=== PATIENT | female | born 1980 | race Caucasian/White ===

== ENCOUNTER 2018-05-14 11:18 | Outpatient (REF) | payer OTHER, SELFPAY ==
--- NOTE | 2018-05-14 10:45 | PAPFT_PTH ---
PATIENT: Lena Still LOC: [facility] U#:[id number] AGE/SX: 38/F ROOM: RE05/14/[address]: Mandi Garcia NP : 1980 BED: DIS: 05/14/2018 SPEC #: [id number] RECD: 05/14/18 13:18 STATUS: SCOTT RENaun #: [id number] OBED: 05/14/18 10:[address]: Mandi Garcia NP DEPT: [facility] Cytology RECD BY: Crystal Chu ENTERED: 05/14/18 13:18 SP TYPE: PAPFT CATHY DR: Margaret Arias MD Tissues: 1 - CX/ENDOCX FOR PAP SMEARS Procedures: PAP THIN PREP/UVM Screening HPV DNA PROBE Comments: [id number]
== END 2018-05-14 11:38 ==
LOC: LBN 11:18
PROVIDERS: PCP Family Medicine; Visit Provider Nurse Practitioner Women's Health
DX: Z12.4 Encounter for screening for malignant neoplasm of cervix (principal)
CPT/HCPCS: 88142; 87624

== ENCOUNTER 2018-05-20 16:30 | Outpatient (CLI) | payer OTHER, SELFPAY ==
[2018-05-20 17:58] LABS: Cholesterol 167 mg/dL (50-200); HDL Cholesterol 60 mg/dL (40-60); LDL CHOLESTEROL 95 mg/dL (<100); Triglyceride 31 mg/dL (30-150)
== END 2018-05-20 16:50 ==
PROVIDERS: PCP Family Medicine; Visit Provider Nurse Practitioner Women's Health
DX: Z13.220 Encounter for screening for lipoid disorders (principal)
CPT/HCPCS: 80061; 83721

== ENCOUNTER 2020-07-11 02:38 | Outpatient (CLI) | payer OTHER, SELFPAY ==
[2020-07-11 12:32] LABS: Abs Immature Grans 0.01 10^3/uL (0.0-0.06); Absolute Basophil Count 0.06 10^3/uL (0.0-0.2); Absolute Eosinophil Count 0.38 10^3/uL (0.0-0.7); Absolute Lymphocyte Count 2.24 10^3/uL (1.2-3.4); Absolute Monocyte Count 0.44 10^3/uL (0.1-0.8); Absolute Neutrophil Count 2.92 10^3/uL (1.2-6.7); Eosinophils % 6.3; HCT 43.2 % (36.0-46.0); Immature Grans % 0.2; MCH 29.9 pg (27.0-33.0); MCHC 32.4 % (32.0-36.0); MCV 92.1 fL (80-95); MPV 11.6 fL (8.0-11.0); Monocytes % 7.3; Neutrophils % 48.2; Nucleated RBC 0 %; Platelet Count 240 10^3/uL (130-400); RBC 4.69 10^6/uL (3.93-5.22); RDW 13.4 % (11.7-14.6); RDW-SD 45.5 fL; WBC 6.05 10^3/uL (4.4-10.8)
[2020-07-11 13:01] LABS: ALT 26 U/L (14-59); AST 15 U/L (15-37); Albumin 3.6 g/dL (3.4-5.0); Alkaline Phosphatase 64 U/L (46-116); Anion Gap 7.2 mmol/L (3-11); BUN 15 mg/dL (7-18); Bilirubin, Total 0.5 mg/dL (0.2-1.0); CO2 27.8 mmol/L (21.0-32.0); CREATININE 0.8 mg/dL (0.55-1.02); Calcium 9.3 mg/dL (8.5-10.1); Chloride 107 mmol/L (98-107); Glucose 89 mg/dL (74-106); Sodium 142 mmol/L (136-145); Total Protein 6.8 g/dL (6.4-8.2)
[2020-07-11 16:55] LABS: ESR 5 mm/hr (<or=20)
[2020-07-12 11:20] LABS: C3 Complement 84 mg/dL (81-157); C4 Complement 21 mg/dL (13-39); IgA 370 mg/dL (85-499); IgG 1071 mg/dL (610-1,616); IgM 135 mg/dL (35-242)
[2020-07-12 14:32] LABS: ANA Interpretation Positive (Negative); ANA Titer Pattern 1:160 Homogeneous
[2020-07-13 10:28] LABS: Complement C1q, S 21 mg/dL (12 - 22)
== END 2020-07-11 02:39 | disposition home or self-care (01) ==
LOC: LOS 02:38
PROVIDERS: Allergy & Immunology; PCP Family Medicine; Visit Provider Family Medicine
DX: L50.8 Other urticaria (principal); T78.3XXA Angioneurotic edema, initial encounter
CPT/HCPCS: 36415; 80053; 82784; 85652; 86332; 85025; 86038; 86160

== ENCOUNTER 2021-06-22 16:11 | Outpatient (REF) | payer OTHER, SELFPAY ==
[2021-06-22 23:33] LABS: COVID-19 RT-PCR UVMMC Result Negative (Negative)
== END 2021-06-22 16:12 | disposition home or self-care (01) ==
LOC: LBN 16:11
PROVIDERS: PCP Family Medicine; Visit Provider Nurse Practitioner Family
DX: J02.9 Acute pharyngitis, unspecified (principal); Z20.822 Contact with and (suspected) exposure to COVID-19
CPT/HCPCS: U0003

== ENCOUNTER 2022-09-17 08:00 | Outpatient (CLI) | payer OTHER, SELFPAY ==
--- NOTE | 2022-09-17 08:00 | RT.EKG_ITS ---
APPROVED REPORT Exam: Resting ECG Reason for Exam: paroxysmal afib Patient Location: O HR:73 bpm ECG Measurements Heart Rate 73 AXIS NC 141 P 76 QRSd 92 QRS 15 QT 395 T 33 QTc 436 Conclusion Sinus rhythm...normal P axis, V-rate 50- 99 Low voltage, precordial leads...precordial leads <1.0mV Otherwise normal ECG
== END 2022-09-17 08:01 | disposition home or self-care (01) ==
LOC: DI.CARD 08:01
PROVIDERS: PCP Nurse Practitioner Family; Visit Provider Internal Medicine Cardiovascular Disease
DX: I48.0 Paroxysmal atrial fibrillation (principal)
CPT/HCPCS: 93010

== ENCOUNTER 2022-10-01 01:57 | Outpatient (CLI) | payer OTHER, SELFPAY ==
--- NOTE | 2022-10-01 12:07 | DI.MAMMO_ITS ---
Exam(s) MAMMO SCREENING EXAM: MAMMO SCREENING CLINICAL HISTORY: screening,Z12.39 TECHNIQUE: Bilateral full field digital CC and MLO mammographic images were obtained with 3D tomosyn thesis and utilizing computer aided detection (CAD). COMPARISON: This is a baseline examination. FINDINGS: Masses/Architectural Distortion: None seen. Microcalcifications: No suspicious pleomorphic-type are seen. Skin Thickening/Nipple Retraction: None. IMPRESSION: 1. No significant interval change with no specific features of malignancy noted. 2. Unless there is more urgent need, screening mammography is recommended, as per [employer] guidelines. BI-RADS Category 1 - Negative Breast Density - Category C - Heterogeneously dense Breast density category C or D implies that the patient has dense breast tissue. Dense breast tissue is very common and is not abnormal but dense breast tissue can make it harder to find cancer on a ma mmogram. Also, dense breast tissue may increase their breast cancer risk. This information about the result of the mammogram report was provided to the patient to raise their awareness. Use this report when you speak with the patient about their risks for breast cancer, which includes their family hist ory. At that time, you may recommend for more screening tests (Ultrasound or MRI) as they might be us eful based on their risk. A negative radiographic report should not delay biopsy if a dominant or clinically suspicious mass is present. Up to ten percent of cancers are not identified on mammography. A negative report may reinforce clinical impression. Adenosis and dense breasts may obscure an underlying neoplasm. False positive reports average 6 to 10%. Patient will receive a letter notifying them of these results.
== END 2022-10-01 02:17 ==
PROVIDERS: PCP Nurse Practitioner Family; Visit Provider Nurse Practitioner Women's Health
DX: Z12.31 Encounter for screening mammogram for malignant neoplasm of breast (principal)
CPT/HCPCS: 77063; 77067

== ENCOUNTER 2024-01-16 16:16 | Outpatient (REF) | payer OTHER, SELFPAY ==
--- NOTE | 2024-01-16 15:20 | SKI_PTH ---
PATIENT: Lena Still LOC: [facility] U#:[id number] AGE/SX: 43/F ROOM: RE01/16/[address]: Jose Peralta DO : 1980 BED: DIS: 01/16/2024 SPEC #: [id number] RECD: 01/16/24 18:43 STATUS: SCOTT REQ #: [id number] OBED: 01/16/24 15:[address]: Jose Peralta DEPT: Surgical Specimen RECD BY: Crystal Chu ENTERED: 01/16/24 18:43 SP TYPE: SKI OTHR DR: Lance Escobedo, PRESS SET UP Tissues: 1 - SKIN BIOPSY(SHAVE/PUNCH) Procedures: SKIN LEVEL 4 Comments: [id number]
== END 2024-01-16 16:17 | disposition home or self-care (01) ==
LOC: LBN 16:16
PROVIDERS: PCP Nurse Practitioner Family; Visit Provider Otolaryngology Otolaryngology/Facial Plastic Surgery
DX: L98.9 Disorder of the skin and subcutaneous tissue, unspecified (principal); L81.9 Disorder of pigmentation, unspecified; L82.1 Other seborrheic keratosis
CPT/HCPCS: 88305

== ENCOUNTER 2025-04-08 01:36 | Outpatient (CLI) | payer OTHER, SELFPAY ==
[2025-04-08 15:13] LABS: ALT 27 U/L (10-49); AST 21 U/L (<34); Albumin 4.2 g/dL (3.2-5.0); Alkaline Phosphatase 64 U/L (46-116); Anion Gap 8.5 mmol/L (3-11); BUN 16 mg/dL (9-23); Bilirubin, Total 0.5 mg/dL (0.2-1.2); CO2 26.5 mmol/L (20.0-31.0); Calcium 9.1 mg/dL (8.3-10.6); Chloride 109 mmol/L (98-107); Cholesterol 169 mg/dL (<200); Glucose 84 mg/dL (74-106); HDL Cholesterol 56 mg/dL (>40); Potassium 3.8 mmol/L (3.5-5.1); Sodium 144 mmol/L (136-145); Total Protein 7.3 g/dL (5.7-8.2)
[2025-04-08 15:14] LABS: TSH (W/Ref FT4) 2.00 uIU/mL (0.55-4.78)
== END 2025-04-08 01:37 | disposition home or self-care (01) ==
PROVIDERS: PCP Nurse Practitioner Family; Visit Provider Nurse Practitioner Family
DX: Z00.00 Encounter for general adult medical examination without abnormal findings (principal); I48.0 Paroxysmal atrial fibrillation; L57.0 Actinic keratosis
CPT/HCPCS: 36415; 80053; 80061; 84443

== ENCOUNTER → 2025-04-19 00:46 | Outpatient (CLI) | payer OTHER, SELFPAY ==
--- NOTE | 2025-04-19 07:30 | DI.MAMMO_ITS ---
Exam(s) MAMMO SCREENING EXAM: MAMMO SCREENING CLINICAL HISTORY: screening,Z12.39. TECHNIQUE: Bilateral full field digital CC and MLO mammographic images were obtained with 3D tomosynthesis and utilizing computer aided detection (CAD). COMPARISON: Prior mammograms were reviewed. FINDINGS: The fibroglandular tissue pattern is again noted be moderately dense. There are no new spiculated masses nor malignant appearing microcalcification groups. There is no significant architectural distortion nor skin thickening-retraction. IMPRESSION: No radiographic evidence of malignancy. BI-RADS Category 1 - Negative Breast Density - Category C - The breast are heterogeneously dense, which may obscure small masses. Breast density Category C or D implies that the patient has dense breast tissue. Dense breast tissue can make it harder to find cancer on a mammogram. Dense breast tissue is also associated with an increased risk of breast cancer. This information about the result of the mammogram report was provided to the patient to raise their awareness. Use this report when you speak with the patient about their risks for breast cancer, which includes their family history. At that time, you may recommend additional screening tests (Ultrasound or MRI) as these tests may add significant information. A negative radiographic report should not delay biopsy if a dominant or clinically suspicious mass is present. Up to ten percent of cancers are not identified on mammography. A negative report may reinforce clinical impression. Adenosis and dense breasts may obscure an underlying neoplasm. False positive reports average 6 to 10%. Patient will receive a letter notifying them of these results.
== END ==
LOC: DI 00:46
PROVIDERS: PCP Nurse Practitioner Family; Visit Provider Nurse Practitioner Family
DX: Z12.31 Encounter for screening mammogram for malignant neoplasm of breast (principal)
CPT/HCPCS: 77063; 77067